=== PATIENT | female | born 1980 | race Two or more races ===

== ENCOUNTER 2016-08-01 11:25 | Observation (INO) | payer MEDICAID | END 2016-08-01 12:45 | disposition home or self-care (01) | DRG 566 | LOC: LDRP 11:25 | PROVIDERS: ADMIT Obstetrics & Gynecology; ATTEND Obstetrics & Gynecology | DX: O24.419 Gestational diabetes mellitus in pregnancy, unspecified control (principal); Z3A.32 32 weeks gestation of pregnancy | CPT/HCPCS: 59025; 76818; 81002; G0378 ==

== ENCOUNTER 2016-08-05 11:30 | Observation (INO) | payer MEDICAID ==
[~2016-08-05] VITALS: Ht 144.8 cm; Wt 75.3 kg
[2016-08-05] MEDS ORDERED: InsuLIN REG 1unit/0.01ml Soln (100units/ml) SC ONE (12:15)
== END 2016-08-05 13:25 | disposition home or self-care (01) | DRG 566 ==
LOC: LDRP 11:30
PROVIDERS: ADMIT Specialist; ATTEND Specialist
DX: O24.419 Gestational diabetes mellitus in pregnancy, unspecified control (principal); Z3A.33 33 weeks gestation of pregnancy
CPT/HCPCS: 59025; 76818; 81002; 82962; 96372; G0378; J1815

== ENCOUNTER 2016-08-08 10:50 | Observation (INO) | payer MEDICAID | END 2016-08-08 12:30 | disposition home or self-care (01) | DRG 566 | LOC: LDRP 10:50 | PROVIDERS: ADMIT Obstetrics & Gynecology; ATTEND Obstetrics & Gynecology | DX: O24.419 Gestational diabetes mellitus in pregnancy, unspecified control (principal); Z3A.33 33 weeks gestation of pregnancy | CPT/HCPCS: 59025; 76818; 81002; 82962; G0378 ==

== ENCOUNTER 2016-08-10 23:45 | Observation (INO) | payer MEDICAID ==
[2016-08-11] MEDS ORDERED: LACTATED RINGER'S 1,000 ML IV ONE (00:19)
[2016-08-11] MEDS ORDERED: MAGNESIUM SULFATE 40MG/ML 1,000 ML IV SCH (00:19)
[2016-08-11] MEDS ORDERED: MAGNESIUM SULFATE 40MG/ML 1,000 ML IV ONE (00:23)
[2016-08-11] MEDS ORDERED: AMPICILLIN SOD 1 GM VL ONE (00:23)
[2016-08-11] MEDS ORDERED: BETAMETHASONE ACET (6MG/ML) 5ML VIAL ONE (00:23)
[2016-08-11] MEDS ORDERED: AMPICILLIN SOD 2GM INJ 2 GM in SODIUM CHL 0.9% 100 ML IV ONE (00:30)
[2016-08-11 01:27] LABS: Urine Bilirubin Negative (Negative); Urine Blood Negative /uL (Negative); Urine Color Straw (Yellow); Urine Glucose Normal (Normal); Urine Ketone Negative (Negative); Urine Nitrite Negative (Negative); Urine RBC <1 /hpf (0 - 4); Urine Squamous Epithelial Cell FEW /hpf (<5); Urine Urobilinogen Normal (Negative); Urine pH 6.5 (5.0-8.0)
[2016-08-11 01:33] LABS: Basophils # (auto) 0 uL; Basophils % (auto) 0.3 % (0.0-2.0); Eosinophils # (auto) 0.1 uL; Eosinophils % (auto) 1.8 % (0.0-7.0); Hematocrit 32.2 % (36.0-46.0); Hemoglobin 10.7 g/dL (12.2-16.2); Lymphocytes # (auto) 1.3 uL; Lymphocytes % (auto) 21.2 % (10.0-50.0); Mean Corpuscular Hgb Conc. 33.3 g/dL (32.0-36.0); Mean Corpuscular Volume 83.9 fL (80.0-100.0); Mean Platelet Volume 11.3 fL (7.4-10.4); Monocytes # (auto) 0.6 uL; Monocytes % (auto) 9.6 % (0.0-12.0); Neutrophils # (auto) 4.2 uL; Neutrophils % (auto) 67.1 % (37.0-80.0); Platelet Count (auto) 206 10^3/uL (140-450); Red Cell Distribution Width 17.1 % (11.6-16.0); White Blood Cell 6.3 10^3/uL (4.4-10.8)
[2016-08-11 01:38] LABS: Partial Thromboplastin Time 25.4 sec (22.64-33.71)
[2016-08-11 01:48] LABS: INR 0.85 (0.9-1.15); Prothrombin Time 9.2 sec (9.37-12.3)
[2016-08-11 02:06] LABS: Albumin 2.5 g/dL (3.4-5.0); Calcium 8.7 mg/dL (8.5-10.1); Potassium 3.8 mmol/L (3.5-5.1)
[2016-08-11 02:08] LABS: Bilirubin, Total 0.2 mg/dL (0.2-1.0); Total Protein 6.6 g/dL (6.4-8.2)
[2016-08-11] MEDS ORDERED: BETAMETHASONE ACET (6MG/ML) 5ML VIAL IM SCH (10:00)
== END 2016-08-11 02:07 | disposition short-term general hospital (02) | DRG 566 ==
LOC: LDRP 23:45
PROVIDERS: ADMIT Obstetrics & Gynecology; ATTEND Obstetrics & Gynecology
DX: O24.419 Gestational diabetes mellitus in pregnancy, unspecified control (principal); O60.03 Preterm labor without delivery, third trimester; O42.92 Full-term premature rupture of membranes, unspecified as to length of time between rupture and onset of labor; Z3A.37 37 weeks gestation of pregnancy
CPT/HCPCS: 36415; 59025; 76805; 80053; 80307; 81001; 81002; 82962; 85025; 85610; 85730; 86850; 86900; 86901; 96365; 96366; G0378; J0290; J0702; J3475; 51702; 82948; 96372; J7060

== ENCOUNTER → 2016-09-24 | Outpatient (CLI) | payer MEDICAID | END | disposition home or self-care (01) | LOC: LAB 07:20 | PROVIDERS: ATTEND Specialist | DX: Z39.0 Encounter for care and examination of mother immediately after delivery (principal); O99.810 Abnormal glucose complicating pregnancy | CPT/HCPCS: 36415; 82951 ==